=== PATIENT | female | born 1990 | race Native Hawaiian/Other Pacific Islander ===

== ENCOUNTER 2022-06-08 05:31 | Emergency (ER) | payer OTHER ==
[~2022-06-08] VITALS: Ht 160 cm; Wt 59.0 kg
[2022-06-08 05:42] VITALS: BP 120/78; TEMP 99.2
[2022-06-08] MEDS ORDERED: 904272561 PO (06:05)
== END 2022-06-08 06:30 | disposition home or self-care (01) ==
LOC: ED 05:31
DX: L02.31 Cutaneous abscess of buttock (principal); Z32.02 Encounter for pregnancy test, result negative
CPT/HCPCS: 81025; 99283; J0696

== ENCOUNTER 2022-07-20 18:48 | Emergency (ER) | payer OTHER ==
[~2022-07-20] VITALS: Ht 160 cm; Wt 59.0 kg
[~2022-07-20 18:48] MED LIST: 904272561 PO
[2022-07-20 18:50] VITALS: BP 127/85; TEMP 98.6
== END 2022-07-20 19:53 | disposition home or self-care (01) ==
LOC: ED 18:48
DX: K02.9 Dental caries, unspecified (principal); K04.7 Periapical abscess without sinus
CPT/HCPCS: 99281